=== PATIENT | male | born 1975 | race Caucasian/White ===

== ENCOUNTER 2021-08-21 19:55 | Emergency (ER) | payer SELFPAY ==
[~2021-08-21] VITALS: Ht 182.9 cm; Wt 74.8 kg
--- NOTE | 2021-08-21 20:10 | NUR ---
BIBS C/O LLQ PAIN X2 DAYS -N/V/D. PATIENT ALERT AND ORIENTED X3. AMBULATORY WITH NON LABORED BREATHING. PATIENT IN BED 15 URINECOLLECTED AND SENT TO LAB
--- NOTE | 2021-08-21 20:30 | NUR ---
CLEATER AT PT'S BEDSIDE
[2021-08-21 20:55] LABS: BASOPHILS # (AUTO) 0.1 K/uL (0.0-0.2); BASOPHILS % (AUTO) 0.6 % (0.0-2.0); EOSINOPHILS % (AUTO) 9.2 % (0.0-6.0); HEMATOCRIT 41 % (39-51); HEMOGLOBIN 13.7 g/dL (13.5-17.5); LYMPHOCYTES # (AUTO) 2.8 K/uL (0.8-4.8); LYMPHOCYTES % (AUTO) 33.6 % (20.0-44.0); MEAN CORPUSCULAR HGB CONC 34 g/dl (31.0-36.0); MEAN CORPUSCULAR VOLUME 100 fL (80-96); MONOCYTES # (AUTO) 0.7 K/uL (0.1-1.30); MONOCYTES % (AUTO) 8.6 % (2.0-12.0); PLATELET COUNT (AUTO) 278 K/uL (150-450); RED BLOOD CELL COUNT(AUTO) 4.06 MIL/uL (4.5-6.0); WHITE BLOOD COUNT (AUTO) 8.2 K/uL (4.3-11.0)
--- NOTE | 2021-08-21 21:08 | NUR ---
CT PAGED FOR RESULTS STATUS
[2021-08-21] MEDS ORDERED: KETOROLAC TROMETHAMINE INJ 30 MG/ML VIAL IM ONE (21:30)
[2021-08-21] MEDS ORDERED: KETOROLAC TROMETHAMINE INJ 30 MG/ML VIAL ONE (21:32)
[2021-08-21] MEDS ORDERED: POLY17PO4 PO (21:33)
[2021-08-21] MEDS ORDERED: CIPR500T5 PO (21:33)
[2021-08-21] MEDS ORDERED: DOCU-141 PO (21:33)
--- NOTE | 2021-08-21 21:47 | NUR ---
Patient discharged to home in stable condition. Written and verbal after care instructions given. Patient verbalizes understanding of instruction.
[2021-08-21 21:50] VITALS: BP 139/76
[2021-08-21 23:28] LABS: CALCIUM, SERUM 9.1 mg/dL (8.5-10.1); POTASSIUM 4.6 mmol/L (3.5-5.1)
[2021-08-21 23:35] LABS: ALBUMIN 3.3 g/dL (3.4-5.0); TOTAL PROTEIN, SERUM 5.9 g/dL (6.4-8.2)
[2021-08-22 04:24] LABS: BILIRUBIN,TOTAL 0.2 mg/dL (0.2-1.0)
[2021-08-22 05:51] LABS: BILIRUBIN,DIRECT 0.1 mg/dL (0.0-0.2)
== END 2021-08-21 21:51 | disposition home or self-care (01) ==
LOC: ER 20:00
DX: R10.32 Left lower quadrant pain (principal); Z59.00 Homelessness unspecified
CPT/HCPCS: 36415; 74176; 80048; 80076; 83690; 85025; 96372; 99284; J1885